=== PATIENT | female | born 1955 | race Caucasian/White ===

== ENCOUNTER 2016-04-26 16:33 | Emergency (ER) | payer MEDICARE, MEDICAID ==
[~2016-04-26] VITALS: Ht 142.2 cm; Wt 50.0 kg
[~2016-04-26 16:33] MED LIST: AMIT8CAP6 PO; CALC600T25 PO; CLON0.5T PO; GABA400C5 PO; IMIT100T PO; MORP15TA73 PO; NEXI20CA PO; OMEP20CA2 PO; PROM25TA5 PO; PROP20TA3 PO; VITA100T15 PO
[2016-04-26 16:46] VITALS: BP 148/70; PULSE 98; RESP 16; TEMP 97.9; O2SAT 91
[2016-04-26] MEDS ORDERED: SODIUM CHLOR 0.9% 1000 ML INJ 1,000 ML IV SCH (17:06)
[2016-04-26] MEDS ORDERED: diphenhydrAMINE HCL 50 MG/ML VIAL IVP ONE (17:15)
[2016-04-26] MEDS ORDERED: PROCHLORPERAZINE INJ 10 MG/2 ML VIAL IVP ONE (17:15)
[2016-04-26] MEDS ORDERED: KETOROLAC TROMETHAMINE 30 MG/ML (IVP) VIAL IVP ONE (17:15)
--- NOTE | 2016-04-26 18:37 | PD ---
HPI Chief Complaint: GI Complaint Time Seen by Provider: 18:31 Travel History International Travel<30 days: No Contact w/Intl Traveler<30days: No Traveled to known affect area: No History of Present Illness HPI 52-year-old female that presents to the ED for evaluation of migraine headache after procedure today. Per patient she follows with Dr. Salazar and today she was given a have a procedure to see whether she is a good candidate for a pain pump. Per patient she was given a shot on her back of morphine to see how well she will do with it. Per patient she initially felt great and the pain went away but per patient half an hour after starting the procedure she Sunitha developing a headache. Per patient he was severe but similar to her previous migraine headaches. Per patient she also felt nausea. Patient was observed for about 3 hours after the procedure but still continued to have the symptoms. Patient was given Narcan as well as fluids with minimal relief of the discomfort. Patient was sent here by ambulance for evaluation of the migraine headache per Dr. Salazar. She states that her headache is 8 out of 10. Does not radiate. Feels similar to her old headaches which she's had in the past but states that everything that has been given to her has not helped. Per patient she also feels nausea and is vomiting. Denies any recent injury. Per patient she has chronic neck pain and back pain secondary to the surgery that she's had in the past. This was an attempt to see whether she could be accounted for better pain management. Denies any abdominal pain. No bowel movement or urinary issues. 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) Neurologic: Yes (hx of concussion at 13 years old with no residual) Psychiatric: No Reproductive: No Respiratory: No Immunizations Current: Yes Migraines: Yes Sleep Apnea: Yes Thyroid Disease: No Tetanus Vaccination: > 5 Years ?: Not Menopausal: Yes : 0 Para: 0 Miscarriage: 0 : 0 Past Surgical History AICD: No Joint Replacement: No Oral Surgery: Yes (adenoidectomy) Pacemaker: No Tonsillectomy: Yes Other Surgery: Yes (CLEFT PALATE REPAIR, WEB NECK) Social History Alcohol Use: No Tobacco Use: Yes (02/26 PPD ) Substance Use: No Allergies-Medications (Allergen,Severity, Reaction): Coded Allergies: No Known Allergies (Verified , 04/26/16) Reported Meds & Prescriptions Reported Meds & Active Scripts Active Phenergan (Promethazine HCl) 25 Mg Tab 25 Mg PO Q6H PRN Propranolol (Propranolol HCl) 20 Mg Tab 20 Mg PO BID Clonazepam 0.5 Mg Tab 0.5 Mg PO BID Reported Vitamin B12 (Cyanocobalamin) 100 Mcg Tab 100 Mcg PO DAILY Calcium (Calcium Carbonate) 600 Mg Tab 600 Mg PO DAILY Imitrex (Sumatriptan Succinate) 100 Mg Tab 100 Mg PO ONCE PRN If a satisfactory response has not been obtained at 2 hours, a second dose may be administered Nexium (Esomeprazole DR) 20 Mg Capdr 40 Mg PO DAILY Amitiza (Lubiprostone) 8 Mcg Cap 8 Mcg PO BID Morphine Sulfate CR (Morphine Sulfate) 15 Mg Tab 15 Mg PO BID Omeprazole 20 Mg Cap 20 Mg PO DAILY Gabapentin 400 Mg Cap 400 Cap PO TID Review of Systems General / Constitutional: No: Fever, Chills, Weight Gain, Weight Loss, Other Eyes: No: Diploplia, Blurred Vision, Photophobia, Drainage, Redness, Foreign Body Sensation, Pain, Tearing, Blind Spots, Visual changes, Blindness, Other HENT: Positive: Headaches, No: Vertigo, Lightheadedness, Sore Throat, Rhinitis , Rhinorrhea, Congestion, Nosebleed, Neck Stiffness, Neck Pain, Masses, Gingival Bleeding, Dental Difficulties, Ear Discharge, Earache, Other Cardiovascular: No: Chest Pain or Discomfort, Palpitations, Irregular Rhythm, Tachycardia, Diaphoresis, Syncope, Dyspnea on exertion, Varicosities, Edema, Cyanosis, Varicosities, Phlebitis, Claudication, Other Respiratory: No: Cough, Shortness of Breath, Wheezing, Sneezing, Orthopnea, Hemoptysis, Stridor, Night Sweats, Pleuritic Pain, Other Gastrointestinal: Positive: Nausea, Vomiting, No: Diarrhea, Abdominal Pain, Hematemesis, Hematochezia, Constipation, Changes in Bowel Habits, Indigestion, Dysphagia, Loss of Appetite, Other Genitourinary: No: Urgency, Frequency, Dysuria, Nocturia, Hematuria, Decreased Urinary Output, Oliguria, Hesitancy, Dribbling, Incontinence, Pelvic Pain, Flank Pain, Dyspareunia, Discharge, Dysmenorrhea, Menorrhagia, Metorrhagia, Vaginal Bleeding, Other Musculoskeletal: No: Myalgias, Arthralgias, Limited ROM, Weakness, Cramping, Edema, Pain, Atrophy, Other Skin: No Rash, No Itching, No Dryness, No Lumps, No Hives, No Change in Pigmentation, No Change in nails, No Alopecia, No Lesions, No Breast Lumps, No Breast Tenderness, No Breast Swelling, No Other Neurologic: Positive: Headache, No: Weakness, Dizziness, Syncope, Focal Abnormalities, Coordination Problem, Tremor, Ataxia, Change in Mentation, Slurred Speech, Paresthesia, Incontinence, Seizures, Sensory Disturbance, Other Psychiatric: No: Anxiety, Depression, Suicidal Ideations, Disorder of Thought, Mood Disorder, Substance Abuse, Homicidal Ideation, Other Endocrine: No: Heat Intolerance, Cold Intolerance, Polyuria, Polydipsia, Other Hematologic/Lymphatic: No: Easy Bruising, Lymph Node Enlargement, Other Physical Exam Narrative GENERAL: SKIN: Warm and dry. HEAD: Atraumatic. Normocephalic. EYES: Pupils equal and round. No scleral icterus. No injection or drainage. ENT: No nasal bleeding or discharge. Mucous membranes pink and moist. Tongue is midline. No uvula deviation. NECK: Trachea midline. No JVD. CARDIOVASCULAR: Regular rate and rhythm. No murmurs, S3, S4. RESPIRATORY: No accessory muscle use. Clear to auscultation. Breath sounds equal bilaterally. GASTROINTESTINAL: Abdomen soft, non-tender, nondistended. Hepatic and splenic margins not palpable. MUSCULOSKELETAL: Extremities without clubbing, cyanosis, or edema. No obvious deformities. Full range of motion of the upper and lower extremities bilaterally. 2+ pulses bilaterally. Neurovascular intact. Patient does have a short neck that is fused secondary to surgical fusion. NEUROLOGICAL: Awake and alert. No obvious cranial nerve deficits. Motor grossly within normal limits. Five out of 5 muscle strength in the arms and legs. Normal speech. Romberg test negative. Pronator test negative. PSYCHIATRIC: Appropriate mood and affect; insight and judgment normal. Data Data Last Documented VS Vital Signs Date Time Temp Pulse Resp B/P Pulse Ox O2 Delivery O2 Flow Rate FiO2 04/26/16 16:46 97.9 98 16 148/70 91 Orders Ketorolac Inj (Toradol Inj) (04/26/16 17:15) Prochlorperazine Inj (Compazine Inj) (04/26/16 17:15) Diphenhydramine Inj (Benadryl Inj) (04/26/16 17:15) Sodium Chlor 0.9% 1000 Ml Inj (Ns 1000 M (04/26/16 17:06) MDM Medical Decision Making Medical Screen Exam Complete: Yes Emergency Medical Condition: Yes Medical Record Reviewed: Yes Differential Diagnosis Migraine headache versus tension headache versus postprocedural headache versus epidural headache Narrative Course 60-year-old female that presents to the ED for evaluation of migraine headache. Patient was properly examined and was found to have signs and symptoms consistent with appears to be migraine headache. Patient has had the same in the past. Question with this reaction to the morphine or the pedal injection. Case was discussed in my attending who agrees with treating this as a migraine headache. Patient was given cocktail of medications including Benadryl, Compazine, fluids, Toradol with good relief of her headache. Patient was reassessed and an hour later and feels improved. I do not believe the patient requires any more imaging or treatment at this time. Patient is agreeable and comfortable going home. I recommend further discussion with her pain management to see whether something else will be better for her pain management. She agrees and understands. See ED worsening symptoms. Follow with PCP. Dr. rosario was made aware of all findings and agrees with this. No blood patch recommended at this time per attending. Diagnosis Primary Impression: Migraine Patient Instructions: General Instructions Additional Instructions: Continue taking her pain medications as prescribed by her doctor. Follow up with Dr. Salazar. See ED for any worsening symptoms. Med/Other Pt SpecificInfo: No Meds Exist/No RX given Disposition: 01 DISCHARGE HOME Condition: Stable Elvin Ye Apr 26, 2016 18:37
[2016-05-09] MEDS ORDERED: CLON0.5T PO (15:40)
[2016-07-11] MEDS ORDERED: CLON0.5T PO (08:56)
== END 2016-04-26 21:36 | disposition home or self-care (01) ==
LOC: NEDAMB 16:33
DX: G43.909 Migraine, unspecified, not intractable, without status migrainosus (principal)
CPT/HCPCS: 96374; 96375; 99284; J0780; J1200; J1885; J7030

== ENCOUNTER 2016-05-28 20:37 | Emergency (ER) | payer MEDICARE, MEDICAID ==
[~2016-05-28] VITALS: Ht 142.2 cm; Wt 50.0 kg
[2016-05-28 20:46] VITALS: BP 111/66; PULSE 85; RESP 18; TEMP 98.4; O2SAT 97
--- NOTE | 2016-05-28 21:47 | PD ---
HPI Chief Complaint: Injury Time Seen by Provider: 21:47 Travel History International Travel<30 days: No Contact w/Intl Traveler<30days: No Traveled to known affect area: No History of Present Illness HPI 60-year-old female with PMH of Klippel- Feil syndrome presents to the ED for evaluation of right ankle pain. Onset 9 days ago when she lost her footing and inverted the foot. She did not fall. She has been ambulatory since the accident. She denies numbness, tingling, weakness limitations to ROM or loss of strength. No treatment at home. She sought evaluation today because the foot is still bruised and swollen. 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) Neurologic: Yes (hx of concussion at 13 years old with no residual) Psychiatric: No Reproductive: No Respiratory: No Immunizations Current: Yes Migraines: Yes Sleep Apnea: Yes Thyroid Disease: No Tetanus Vaccination: > 5 Years Influenza Vaccination: Yes Menopausal: Yes : 0 Para: 0 Miscarriage: 0 : 0 Past Surgical History AICD: No Joint Replacement: No Oral Surgery: Yes (adenoidectomy) Pacemaker: No Tonsillectomy: Yes Other Surgery: Yes (CLEFT PALATE REPAIR, WEB NECK) Social History Alcohol Use: No Tobacco Use: Yes (1/2 PPD ) Substance Use: No Allergies-Medications (Allergen,Severity, Reaction): Coded Allergies: No Known Allergies (Verified , 05/28/16) Reported Meds & Prescriptions Reported Meds & Active Scripts Active Clonazepam 0.5 Mg Tab 0.5 Mg PO BID Phenergan (Promethazine HCl) 25 Mg Tab 25 Mg PO Q6H PRN Propranolol (Propranolol HCl) 20 Mg Tab 20 Mg PO BID Reported Vitamin B12 (Cyanocobalamin) 100 Mcg Tab 100 Mcg PO DAILY Calcium (Calcium Carbonate) 600 Mg Tab 600 Mg PO DAILY Imitrex (Sumatriptan Succinate) 100 Mg Tab 100 Mg PO ONCE PRN If a satisfactory response has not been obtained at 2 hours, a second dose may be administered Nexium (Esomeprazole DR) 20 Mg Capdr 40 Mg PO DAILY Amitiza (Lubiprostone) 8 Mcg Cap 8 Mcg PO BID Morphine Sulfate CR (Morphine Sulfate) 15 Mg Tab 15 Mg PO BID Omeprazole 20 Mg Cap 20 Mg PO DAILY Gabapentin 400 Mg Cap 400 Cap PO TID Review of Systems Except as stated in HPI: all other systems reviewed are Neg Physical Exam Narrative GENERAL: Well-nourished, well-developed white female in no acute distress. SKIN: Focused skin assessment warm/dry. HEAD: Normocephalic. EYES: No scleral icterus. No injection or drainage. NECK: Supple, trachea midline. No JVD or lymphadenopathy. CARDIOVASCULAR: Regular rate and rhythm without murmurs, gallops, or rubs. RESPIRATORY: Breath sounds equal bilaterally. No accessory muscle use. GASTROINTESTINAL: Abdomen soft, non-tender, nondistended. MUSCULOSKELETAL: No cyanosis, or edema. Focused right lower extremity exam: 2+ radial pulse. Squeeze test positive. Mild edema and tenderness to palpation of the lateral malleolus. No base of the fifth tenderness. No medial malleolus tenderness. No navicular tenderness. Mild bruising of the forefoot at the base of toes 2 through 4. Patient is able to flex and extend the ankle. She is able to wiggle the toes. Sensation intact to light touch distally. Cap refill less than 2 seconds. BACK: Nontender without obvious deformity. No CVA tenderness. Data Data Last Documented VS Vital Signs Date Time Temp Pulse Resp B/P Pulse Ox O2 Delivery O2 Flow Rate FiO2 05/28/16 20:46 98.4 85 18 111/66 97 Orders Ankle, Complete ([id number]) (05/28/16 21:50) Foot, Complete ([id number]) (05/28/16 21:50) Ice/Cold Pack (05/28/16 21:50) MDM Medical Decision Making Medical Screen Exam Complete: Yes Emergency Medical Condition: Yes Differential Diagnosis Ankle sprain versus contusion versus toe fracture versus other Narrative Course 60-year-old female with PMH of Klippel- Feil syndrome presents to the ED for evaluation of right ankle pain. Onset 9 days ago when she lost her footing and inverted the foot. She did not fall. She has been ambulatory since the accident. She denies numbness, tingling, weakness limitations to ROM or loss of strength. No treatment at home. She sought evaluation today because the foot is still bruised and swollen. Vitas reviewed. Physical exam reveals a non toxic appearing white female in no acute distress. Focused right lower extremity exam : 2+ radial pulse. Squeeze test positive. Mild edema and tenderness to palpation of the lateral malleolus. No base of the fifth tenderness. No medial malleolus tenderness. No navicular tenderness. Mild bruising of the forefoot at the base of toes 2 through 4. Patient is able to flex and extend the ankle. She is able to wiggle the toes. Sensation intact to light touch distally. Cap refill less than 2 seconds. BACK: Nontender without obvious deformity. No CVA tenderness. Ice pack was applied. X-rays reveal no acute bony injury per radiology read. This is contusion and ankle sprain. I offered the patient an Nabeel wrap for an ankle brace which she refused. She stated that she feels as if it would just be cumbersome. She states that she'll continue to treat with ice and elevation. She states that she is limited with pain medications due to her gastroparesis. Patient is instructed to continue with symptomatic treatment, follow-up with the primary care or orthopedist. She indicated understanding of these instructions and is agreeable to plan of care. She is stable and discharged home. Diagnosis Primary Impression: Right ankle sprain Qualified Code: S93.401A - Sprain of right ankle, unspecified ligament, initial encounter Additional Impression: Contusion of right foot Qualified Code: S90.31XA - Contusion of right foot, initial encounter Referrals: Orthopedist Primary Care Physician Patient Instructions: Ankle Sprain (ED), Ankle Sprain Exercises (GEN), General Instructions Additional Instructions: Rest, ice, elevate the extremity. Apply ice no longer than 10-15 minutes per hour a few times a day. Return to normal, gentle activity as tolerated. No running, jumping activities for the next few weeks. Follow up with orthopedist or your primary care provider. Return to the ED for any urgent or emergent medical condition. Disposition: 01 DISCHARGE HOME Condition: Stable Cait Aguilar May 28, 2016 21:47
--- NOTE | 2016-05-28 22:50 | RADHPO ---
EXAM DATE/TIME: 05/28/2016 22:26 [facility] COMPARISON: No previous studies available for comparison. INDICATIONS : Right foot pain. Patient states twisted right foot. MEDICAL HISTORY : None. SURGICAL HISTORY : None. ENCOUNTER: Initial ACUITY: 2 weeks PAIN SCORE: 5/10 LOCATION: Right foot FINDINGS: No definite fractures, or dislocations are identified. No definite lytic or sclerotic lesion is seen . CONCLUSION: Unremarkable study. Javed Saunders MD on May 28, 2016 at 22:49 Board Certified Radiologist. This report was verified electronically.
--- NOTE | 2016-05-28 22:50 | RADHPO ---
EXAM DATE/TIME: 05/28/2016 22:21 [facility] COMPARISON: No previous studies available for comparison. INDICATIONS : Complains of right ankle pain. Patient states twisted ankle. MEDICAL HISTORY : None. SURGICAL HISTORY : None. ENCOUNTER: Initial ACUITY: 2 weeks PAIN SCORE: 5/10 LOCATION: Right ankle FINDINGS: No definite fractures, or dislocations are identified. No definite lytic or sclerotic lesion is seen . The joint spaces are well maintained. CONCLUSION: Unremarkable study. Javed Saunders MD on May 28, 2016 at 22:48 Board Certified Radiologist. This report was verified electronically.
[2016-07-11] MEDS ORDERED: CLON0.5T PO (08:56)
== END 2016-05-28 23:03 | disposition home or self-care (01) ==
LOC: PHED 20:37 → PHEFT 23:03
DX: S93.401A Sprain of unspecified ligament of right ankle, initial encounter (principal); S90.31XA Contusion of right foot, initial encounter; Q76.1 Klippel-Feil syndrome; F17.200 Nicotine dependence, unspecified, uncomplicated; K21.9 Gastro-esophageal reflux disease without esophagitis; X50.1XXA Overexertion from prolonged static or awkward postures, initial encounter
CPT/HCPCS: 73610; 73630; 99283

== ENCOUNTER → 2016-08-02 | Outpatient (CLI) | payer MEDICARE, MEDICAID ==
[2016-08-02 13:13] LABS: AUTOMATED NEUTROPHIL # 5.2 TH/MM3 (1.8-7.7); BASOPHIL % 0.4 % (0.0-2.0); EOSINOPHIL # 0.1 TH/MM3 (0-0.4); HEMATOCRIT 33.8 % (35.0-46.0); HEMO FLAGS DIFF FINAL; LYMPH % 40.9 % (9.0-44.0); LYMPHOCYTE # 4.1 TH/MM3 (1.0-4.8); MEAN CELL VOLUME 81.7 FL (80.0-100.0); MEAN CORPUSCULAR HEMOGLOBIN 26.5 PG (27.0-34.0); MEAN CORPUSCULAR HGB CONC 32.4 % (32.0-36.0); MONO % 6.2 % (0.0-8.0); NEUT % 51.5 % (16.0-70.0); PLATELET COUNT 375 TH/MM3 (150-450); RED BLOOD COUNT 4.14 MIL/MM3 (4.00-5.30); RED CELL DISTRIBUTION WIDTH 17.6 % (11.6-17.2)
[2016-08-02 13:39] LABS: ANION GAP 9 MEQ/L (5-15); AST (GOT) 13 U/L (15-37); BICARBONATE 28.4 MEQ/L (21.0-32.0); BLOOD UREA NITROGEN 13 MG/DL (7-18); CHLORIDE 102 MEQ/L (98-107); GLOMERULAR FILTRATION RATE 87 ML/MIN (>89); POTASSIUM 3.8 MEQ/L (3.5-5.1); SODIUM (NA) 139 MEQ/L (136-145)
[2016-08-02 13:44] LABS: ALKALINE PHOSPHATASE 82 U/L (45-117); ALT (GPT) 16 U/L (10-53); TOTAL BILIRUBIN ADULT 0.2 MG/DL (0.2-1.0)
== END ==
LOC: PLAB 10:24
PROVIDERS: ATTEND Specialist
DX: R68.89 Other general symptoms and signs (principal); N18.9 Chronic kidney disease, unspecified; G93.3 Postviral and related fatigue syndromes; R53.1 Weakness; R53.81 Other malaise; R53.83 Other fatigue
CPT/HCPCS: 36415; 80053; 85025

== ENCOUNTER 2016-10-26 13:41 | Emergency (ER) | payer MEDICARE, MEDICAID ==
[~2016-10-26] VITALS: Ht 142.2 cm; Wt 50.9 kg
[~2016-10-26 13:41] MED LIST changes: +NICO2LOZ BUCCAL; -OMEP20CA2 PO; -PROM25TA5 PO
[2016-10-26 13:43] VITALS: BP 110/57; PULSE 93; RESP 18; TEMP 99.2; O2SAT 95
[2016-10-26] MEDS ORDERED: MORP1TAB24 PO (14:04)
--- NOTE | 2016-10-26 15:06 | PD ---
HPI Chief Complaint: Cold / Flu Symptoms Time Seen by Provider: 14:20 Travel History International Travel<30 days: No Contact w/Intl Traveler<30days: No Traveled to known affect area: No History of Present Illness HPI 61-year-old female since emergency department for evaluation of productive cough and rib pain 3 days. She denies fever but reports possible chills. She denies chest pain or shortness of breath. She reports she's had similar episodes in the past with bronchitis/pneumonia. No aggravating or alleviating factors. Symptoms severity moderate. Pain localized to the right posterior lateral lower ribs. Pain is nonradiating. Severity 3/10. 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) Neurologic: Yes (hx of concussion at 13 years old with no residual) Psychiatric: No Reproductive: No Respiratory: No Immunizations Current: Yes Migraines: Yes Sleep Apnea: Yes Thyroid Disease: No ?: Not Menopausal: Yes : 0 Para: 0 Miscarriage: 0 : 0 Past Surgical History AICD: No Joint Replacement: No Oral Surgery: Yes (adenoidectomy) Pacemaker: No Tonsillectomy: Yes Other Surgery: Yes (CLEFT PALATE REPAIR, WEB NECK) Social History Alcohol Use: No Tobacco Use: Yes (1/2 PPD ) Substance Use: No Allergies-Medications (Allergen,Severity, Reaction): Coded Allergies: No Known Allergies (Verified , 10/26/16) Reported Meds & Prescriptions Reported Meds & Active Scripts Active Clonazepam 0.5 Mg Tab 0.5 Mg PO BID Propranolol (Propranolol HCl) 20 Mg Tab 20 Mg PO BID Reported Morphine ER (Morphine Sulfate) 15 Mg Tab 15 Mg PO BID Vitamin B12 (Cyanocobalamin) 100 Mcg Tab 100 Mcg PO DAILY Calcium (Calcium Carbonate) 600 Mg Tab 600 Mg PO DAILY Imitrex (Sumatriptan Succinate) 100 Mg Tab 100 Mg PO ONCE PRN If a satisfactory response has not been obtained at 2 hours, a second dose may be administered Nexium (Esomeprazole DR) 20 Mg Capdr 40 Mg PO DAILY Amitiza (Lubiprostone) 8 Mcg Cap 8 Mcg PO BID Gabapentin 400 Mg Cap 400 Cap PO TID Review of Systems Except as stated in HPI: all other systems reviewed are Neg Physical Exam Narrative GENERAL: Alert well-appearing female in no acute distress SKIN: Focused skin assessment warm/dry. HEAD: Atraumatic. Normocephalic. EYES: Pupils equal and round. No scleral icterus. No injection or drainage. ENT: No nasal bleeding or discharge. Mucous membranes pink and moist. NECK: Trachea midline. No JVD. CARDIOVASCULAR: Regular rate and rhythm. No murmur appreciated. RESPIRATORY: No accessory muscle use. Clear to auscultation. Breath sounds equal bilaterally. Questionable rhonchi right lower lobe GASTROINTESTINAL: Abdomen soft, non-tender, nondistended. Hepatic and splenic margins not palpable. MUSCULOSKELETAL: No obvious deformities. No clubbing. No cyanosis. No edema. NEUROLOGICAL: Awake and alert. No obvious cranial nerve deficits. Motor grossly within normal limits. Normal speech. PSYCHIATRIC: Appropriate mood and affect; insight and judgment normal. Data Data Last Documented VS Vital Signs Date Time Temp Pulse Resp B/P (MAP) Pulse Ox O2 Delivery O2 Flow Rate FiO2 10/26/16 13:57 Room Air 10/26/16 13:43 99.2 93 18 110/57 (74) 95 Orders Orders Chest, Pa & Lat (10/26/16 ) [facility] Medical Decision Making Medical Screen Exam Complete: Yes Emergency Medical Condition: Yes Differential Diagnosis Pneumonia versus bronchitis versus influenza versus URI Narrative Course 61-year-old female presents emergency department for evaluation of productive cough and rib pain 3 days. Patient's physical exam is reassuring. She has nontoxic appearing. She does have questionable rhonchi in the right lower lobe. Patient reports bronchodilator use in the past with previous pneumonia/ bronchitis diagnoses. Chest x-ray pending Chest x-ray negative for consolidation or acute disease. Patient be treated for bronchitis. Return precautions discussed. Instructed to follow-up with her PCP. Patient verbalizes understanding and agrees to plan Diagnosis Primary Impression: Bronchitis Referrals: Primary Care Physician Additional Instructions: Take the medication as prescribed. Follow-up with her primary doctor. Stay well hydrated by drinking plenty of fluids. Return to emergency department if he developed new or worsening symptoms. Scripts Albuterol 18 GM Inh (Ventolin Hfa 18 GM Inh) 90 Mcg/Act Aer 2 PUFF INH Q4-6H Y for SHORTNESS OF BREATH, #1 INHALER 0 Refills Prov: Kerry Mora 10/26/16 Azithromycin (Azithromycin) 250 Mg Tab 250 MG PO DIRECTED for Infection, #6 TAB 0 Refills Take 2 tabs (500 mg) on day 1 then 1 tab daily x 4 days. Prov: Kerry Mora 10/26/16 Disposition: 01 DISCHARGE HOME Condition: Stable Kerry Mora Oct 26, 2016 15:06
--- NOTE | 2016-10-26 15:20 | RADRPT ---
EXAM DATE/TIME: 10/26/2016 14:37 [facility] COMPARISON: No previous studies available for comparison. INDICATIONS : Cough MEDICAL HISTORY : Smoker SURGICAL HISTORY : None. ENCOUNTER: Initial ACUITY: 2 days PAIN SCORE: 0/10 LOCATION: Bilateral chest FINDINGS: PA and lateral views of the chest demonstrate the lungs to be symmetrically aerated without evidence of mass, infiltrate or effusion. The cardiomediastinal contours are unremarkable. Osseous structure s are intact. Scoliotic curvature. CONCLUSION: No acute disease. Ron Johnston Jr., MD on October 26, 2016 at 15:19 Board Certified Radiologist. This report was verified electronically.
[2016-10-26] MEDS ORDERED: VENTAER INH (15:23)
[2016-10-26] MEDS ORDERED: AZIT250T3 PO (15:23)
== END 2016-10-26 15:32 | disposition home or self-care (01) ==
LOC: PHEFT 13:41
DX: J40 Bronchitis, not specified as acute or chronic (principal); G47.30 Sleep apnea, unspecified; F17.200 Nicotine dependence, unspecified, uncomplicated; Z87.19 Personal history of other diseases of the digestive system; Z87.39 Personal history of other diseases of the musculoskeletal system and connective tissue; Z86.69 Personal history of other diseases of the nervous system and sense organs
CPT/HCPCS: 71020; 99284

== ENCOUNTER → 2017-01-07 | Outpatient (CLI) | payer MEDICARE, MEDICAID ==
[~2017-01-07] MED LIST changes: -CALC600T25 PO; +CALC600T5 PO; +CYAN100 PO; -MORP15TA73 PO; +MORP1TAB24 PO; -NICO2LOZ BUCCAL; +VENTAER INH; -VITA100T15 PO
[2017-01-07 16:30] LABS: AUTOMATED NEUTROPHIL # 3.6 TH/MM3 (1.8-7.7); BASOPHIL % 0.5 % (0.0-2.0); EOSINOPHIL # 0.1 TH/MM3 (0-0.4); EOSINOPHIL % 1.1 % (0.0-4.0); HEMATOCRIT 33.9 % (35.0-46.0); HEMO FLAGS DIFF FINAL; LYMPH % 42.5 % (9.0-44.0); LYMPHOCYTE # 3.1 TH/MM3 (1.0-4.8); MEAN CELL VOLUME 85.4 FL (80.0-100.0); MEAN CORPUSCULAR HEMOGLOBIN 26.8 PG (27.0-34.0); MEAN CORPUSCULAR HGB CONC 31.4 % (32.0-36.0); MONO % 6.6 % (0.0-8.0); NEUT % 49.3 % (16.0-70.0); PLATELET COUNT 387 TH/MM3 (150-450); RED BLOOD COUNT 3.97 MIL/MM3 (4.00-5.30); RED CELL DISTRIBUTION WIDTH 17.4 % (11.6-17.2); WHITE BLOOD COUNT 7.3 TH/MM3 (4.0-11.0)
[2017-01-07 16:38] LABS: ALT (GPT) 19 U/L (10-53); ANION GAP 9 MEQ/L (5-15); AST (GOT) 17 U/L (15-37); BICARBONATE 26.8 MEQ/L (21.0-32.0); BLOOD UREA NITROGEN 14 MG/DL (7-18); CHLORIDE 103 MEQ/L (98-107); GLOMERULAR FILTRATION RATE 77 ML/MIN (>89); GLUCOSE,FASTING 76 MG/DL (74-99); POTASSIUM 4.1 MEQ/L (3.5-5.1); SODIUM (NA) 139 MEQ/L (136-145)
[2017-01-07 16:47] LABS: ALKALINE PHOSPHATASE 89 U/L (45-117); FREE T4 1.12 NG/DL (0.76-1.46); HDL CHOLESTEROL 94.7 MG/DL (40.0-60.0); LDL CHOLESTEROL 87 MG/DL (0-99); TOTAL BILIRUBIN ADULT 0.3 MG/DL (0.2-1.0)
== END ==
LOC: PLAB 10:59
PROVIDERS: ATTEND Family Medicine
DX: E78.5 Hyperlipidemia, unspecified (principal); D64.9 Anemia, unspecified; E13.620 Other specified diabetes mellitus with diabetic dermatitis; E03.9 Hypothyroidism, unspecified
CPT/HCPCS: 36415; 80053; 80061; 84439; 84443; 85025

== ENCOUNTER 2017-05-16 12:39 | Emergency (ER) | payer MEDICARE, MEDICAID ==
[~2017-05-16] VITALS: Ht 142.2 cm; Wt 50.0 kg
[~2017-05-16 12:39] MED LIST changes: +CALC1TAB12 PO; +CLON1TAB PO; -CYAN100 PO; +LEXA20TA PO; +NEXI40CA PO; +OMEP20TA93 PO; +PROM25TA10 PO; -VENTAER INH; +VITA500L2 OROPHARYNG
[2017-05-16 12:56] VITALS: BP 127/60; PULSE 86; RESP 18; TEMP 98.2; O2SAT 95
--- NOTE | 2017-05-16 14:01 | PD ---
HPI Chief Complaint: Complaint Time Seen by Provider: 13:06 Travel History International Travel<30 days: No Contact w/Intl Traveler<30days: No Traveled to known affect area: No History of Present Illness HPI Patient is a 61-year-old female who has had a 3 week history of difficulty urinating. Patient states she is just had a steady trickle. She is concerned because her mother had bladder cancer and kidney failure which she from his been quite concerned. She was actually worked up about a week ago by Dr. wolff under the medical record #[id number]. She had CAT scan at that time and basic labs all of which were reassuring was discharged home. Patient states she still having symptoms and has an appointment with her primary care physician this coming Saturday but wanted to be seen again. 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) Neurologic: Yes (hx of concussion at 13 years old with no residual) Psychiatric: No Reproductive: No Respiratory: No Immunizations Current: Yes Migraines: Yes Sleep Apnea: Yes Thyroid Disease: No ?: Not Menopausal: Yes : 0 Para: 0 Miscarriage: 0 : 0 Past Surgical History AICD: No Joint Replacement: No Oral Surgery: Yes (adenoidectomy) Pacemaker: No Tonsillectomy: Yes Other Surgery: Yes (CLEFT PALATE REPAIR, WEB NECK) Social History Alcohol Use: No Tobacco Use: Yes (1/2 PPD ) Substance Use: No Allergies-Medications (Allergen,Severity, Reaction): Coded Allergies: No Known Allergies (Verified Adverse Reaction, Unknown, 01/25/17) Reported Meds & Prescriptions Reported Meds & Active Scripts Active Lexapro (Escitalopram Oxalate) 20 Mg Tab 20 Mg PO DAILY Clonazepam 0.5 Mg Tab 0.5 Mg PO BID Propranolol (Propranolol HCl) 20 Mg Tab 20 Mg PO BID Reported Morphine ER (Morphine Sulfate) 15 Mg Tab 15 Mg PO BID Calcium (Calcium Carbonate) 600 Mg Tab 600 Mg PO DAILY Imitrex (Sumatriptan Succinate) 100 Mg Tab 100 Mg PO ONCE PRN If a satisfactory response has not been obtained at 2 hours, a second dose may be administered Nexium (Esomeprazole DR) 20 Mg Capdr 40 Mg PO DAILY Amitiza (Lubiprostone) 8 Mcg Cap 8 Mcg PO BID Gabapentin 400 Mg Cap 400 Cap PO TID Review of Systems Except as stated in HPI: all other systems reviewed are Neg Physical Exam Narrative GENERAL: Well-developed well-nourished in no obvious distress peer SKIN: Focused skin assessment warm/dry. HEAD: Atraumatic. Near set eyes and a short submental length. EYES: Pupils equal and round. No scleral icterus. No injection or drainage. ENT: No nasal bleeding or discharge. Mucous membranes pink and moist. NECK: Trachea midline. No JVD. CARDIOVASCULAR: Regular rate and rhythm. No murmur appreciated. RESPIRATORY: No accessory muscle use. Clear to auscultation. Breath sounds equal bilaterally. GASTROINTESTINAL: Abdomen soft, non-tender, nondistended. Hepatic and splenic margins not palpable. MUSCULOSKELETAL: No obvious deformities. No clubbing. No cyanosis. No edema. NEUROLOGICAL: Awake and alert. No obvious cranial nerve deficits. Motor grossly within normal limits. Normal speech. PSYCHIATRIC: Appropriate mood and affect; insight and judgment normal. Data Data Last Documented VS Vital Signs Date Time Temp Pulse Resp B/P (MAP) Pulse Ox O2 Delivery O2 Flow Rate FiO2 05/16/17 12:56 98.2 86 18 127/60 (82) 95 Orders Orders Urinalysis - C+S If Indicated (05/16/17 13:07) Ed Discharge Order (05/16/17 14:43) Labs Laboratory Tests Test 05/16/17 13:35 Urine Color LIGHT-YELLOW Urine Turbidity CLEAR Urine pH 6.0 Urine Specific [place] 1.005 Urine Protein NEG mg/dL Urine Glucose (UA) NEG mg/dL Urine Ketones NEG mg/dL Urine Occult Blood SMALL Urine Nitrite NEG Urine Bilirubin NEG Urine Urobilinogen LESS THAN 2.0 MG/DL Urine Leukocyte Esterase NEG Urine RBC 1 /hpf Urine WBC 4 /hpf Urine Squamous Epithelial Cells 1 /hpf Microscopic Urinalysis Comment CULT NOT INDICATED MDM Medical Decision Making Medical Screen Exam Complete: Yes Emergency Medical Condition: Yes Differential Diagnosis UTI, urinary frequency, acute abdomen highly unlikely Narrative Course Patient room to the emergency department, she was able to completely void her bladder in the ER, UA is negative. She appears well in no obvious distress. On reassessment of the patient she has a lacy rash of her low back which is brought to my attention by the nurses. Certainly does not represent petechiae purpura or severe bacterial infection until it does not represent cellulitis. Unknown etiology behind this rash. At this time I do not think patient needs any further emergent workup and she needs follow-up with her primary care physician. She is stable for discharge Diagnosis Primary Impression: Urinary frequency Additional Impression: Hematuria Referrals: Reinier Velasquez DO Disposition: 01 DISCHARGE HOME Condition: Stable Jim Ring MD May 16, 2017 14:01
[2017-05-16 14:17] LABS: BILIRUBIN, URINE NEG (NEG); BLOOD, URINE SMALL (NEG); GLUCOSE,URINE NEG (NEG); KETONE, URINE NEG (NEG); NITRITE,URINE NEG (NEG); SQUAMOUS EPITHELIAL CELL URINE 1 /hpf (0-5); URINE COLOR LIGHT-YELLOW (YELLW/STRAW); URINE LEUKOCYTE ESTERASE NEG (NEG)
== END 2017-05-16 15:14 | disposition home or self-care (01) ==
LOC: NEPD 12:39
DX: R35.0 Frequency of micturition (principal); R31.9 Hematuria, unspecified
CPT/HCPCS: 81001; 99283

== ENCOUNTER → 2017-06-20 | Outpatient (CLI) | payer MEDICARE, MEDICAID ==
[2017-06-20 18:04] LABS: BACTERIA, URINE RARE /hpf; BILIRUBIN, URINE NEG (NEG); BLOOD, URINE SMALL (NEG); GLUCOSE,URINE NEG (NEG); KETONE, URINE NEG (NEG); NITRITE,URINE NEG (NEG); PH, URINE 5.5 (5.0-8.5); SQUAMOUS EPITHELIAL CELL URINE 8 /hpf (0-5); URINE COLOR YELLOW (YELLW/STRAW); URINE LEUKOCYTE ESTERASE NEG (NEG)
== END ==
LOC: PLAB 13:51
PROVIDERS: ATTEND Urology
DX: R31.21 Asymptomatic microscopic hematuria (principal)
CPT/HCPCS: 81001